=== PATIENT | female | born 1945 | race Caucasian/White ===

== ENCOUNTER 2018-11-08 21:46 | Inpatient (IN) | payer OTHER ==
[~2018-11-08] VITALS: Ht 157.5 cm; Wt 59.6 kg
[~2018-11-08 21:46] MED LIST: CETIRIZINE HCL5 MG PO; GLIPIZIDE METFORMIN PO; OMEPRAZOLE40 MG PO; PROAIR HFA INH8.5 GM INH; SYMBICORT 16010.2 GM INH; [UNRECOGNIZED DRUG - OTHER]
--- OUTSIDE RECORDS SUMMARY | 2018-11-08 21:48 | XMS REPORT ---
Author Author [facility] Address Unknown Phone Unavailable Care Team Providers Care Application Integration Architect Name Role Phone Valeria MEEKS Unavailable Unavailable Problems This patient has no known problems. Allergies, Adverse Reactions, Alerts This patient has no known allergies or adverse reactions. Medications This patient has no known medications. Results Test Description Test Time Test Comments Text Results Atomic Results Result Comments CHEST SINGLE (PORTABLE) [place] [id number] Patient Name: SADIA MELVIN MR #: [id number] : 1945 Age/Sex: 71/F Req #: [id number] Adm Physician: Ordered by: MARLENE MEEKS MD Report #: [id number] Location: ER Room/Bed: Procedure: [id number] DX/CHEST SINGLE (PORTABLE) Exam Date: 01/22/17 Exam Time: 1555 REPORT STATUS: Signed Portable chest x-ray INDICATION: COPD COMPARISON: Chest x- ray 10/01/2015 FINDINGS: Frontal view of the chest obtained at 1547 hours. The cardiac silhouette is normal. The pulmonary vascular markings are normal. The lungs demonstrate diffuse hyperinflation. No mass or infiltrate. The costophrenic angles are sharp. There is no pneumothorax. The osseous structures are stable with degenerative changes of the spine. IMPRESSION: Stable pulmonary hyperinflation. No acute cardiopulmonary process. Signed by: Dr. Devang Rojas MD on 01/22/2017 4:10 PM Dictated By: DEVANG ROJAS MD 161 Transcribed By: ROSALIND on 01/22/171609 COPY TO: MARLENE MEEKS MD
[2018-11-08] MEDS ORDERED: SODIUM CHLORIDE 0.9% 1000ML 1,000 ML IV ONE (22:15)
[2018-11-08] MEDS ORDERED: MECLIZINE HCL 12.5 MG TAB PO ONE (22:15)
--- NOTE | 2018-11-08 22:28 | Diagnostic Imaging Report ---
Examination: Single AP view of the chest. COMPARISON: None. INDICATION: Vomiting DISCUSSION: Lines/tubes: None. Lungs: The lungs are well inflated and clear. No pneumonia or pulmonary edema. Pleura: No pleural effusion or pneumothorax. Heart and mediastinum: The heart and the mediastinum are unremarkable. Bones and soft tissues: No acute bony abnormalities. IMPRESSION: 1. No acute cardiopulmonary abnormalities. Signed by: Dr. Oliver Sanchez M.D. on 11/08/2018 10:24 PM
[2018-11-08 22:36] LABS: BASOPHILS % 0.4 % (0.0-1.0); EOSINOPHILS % 0.1 % (0.0-6.0); HEMATOCRIT 42.1 % (34.2-44.1); HEMOGLOBIN 14.5 g/dL (12.0-16.0); LYMPHOCYTES # (AUTO) 1.3 (1.0-3.2); LYMPHOCYTES % 18.3 % (18.0-39.1); MEAN CORPUSCULAR HGB CONC 34.4 g/dL (31-35); MEAN CORPUSCULAR VOLUME 92.9 fL (81-99); MONOCYTES # (AUTO) 0.4 (0.2-0.8); MONOCYTES % 5.2 % (4.4-11.3); NEUTROPHILS # (AUTO) 5.4 (2.1-6.9); NEUTROPHILS % 75.4 % (38.7-80.0); PLATELET COUNT 243 x10e3/uL (140-360); RED BLOOD COUNT 4.53 x10e6/uL (3.6-5.1); RED CELL DISTRIBUTION WIDTH 13.5 % (11.7-14.4)
[2018-11-08 22:45] LABS: INR 0.82; PARTIAL THROMBOPLASTIN TIME 25.3 seconds (23.8-35.5); PROTHROMBIN TIME 11.8 seconds (11.9-14.5)
[2018-11-08 22:55] LABS: ALANINE AMINOTRANSFERASE 18 IU/L (0-55); ALBUMIN 4.4 g/dL (3.5-5.0); ALBUMIN/GLOBULIN RATIO 1.5 (0.8-2.0); ALKALINE PHOSPHATASE 67 IU/L (40-150); AMYLASE 61 U/L (25-125); ANION GAP 18.9 mmol/L (8-16); BLOOD UREA NITROGEN 11 mg/dL (7-26); BUN/CREATININE RATIO 13 (6-25); CALCIUM 10.1 mg/dL (8.4-10.2); CARBON DIOXIDE 25 mmol/L (22-29); CHLORIDE 100 mmol/L (98-107); CREATINE KINASE 145 IU/L (29-168); CREATININE, SERUM 0.86 mg/dL (0.57-1.11); EST GLOMERULAR FILTRATION RATE > 60 ML/MIN (60-); GLUCOSE 241 mg/dL (74-118); LIPASE 17 U/L (8-78); POTASSIUM 3.9 mmol/L (3.5-5.1); SODIUM 140 mmol/L (136-145)
[2018-11-08] MEDS ORDERED: SODIUM CHLORIDE 0.9% 50ML 50 ML ONE (23:26)
[2018-11-08] MEDS ORDERED: IOPAMIDOL 370 MG/ML 200 ML INFUS..BTL INJ ONE (23:27)
[2018-11-08] MEDS ORDERED: ONDANSETRON HCL INJ 2MG/ML 2ML 2 MG/ML VIAL IV STA (23:51)
[2018-11-09] VITALS (7 sets, daily range): BP systolic 119–153; BP diastolic 56–69
--- NOTE | 2018-11-09 00:14 | Diagnostic Imaging Report ---
EXAMINATION: CT of the abdomen and pelvis with contrast. TECHNIQUE: Helical CT images of the abdomen and pelvis were performed from the lung bases to the lesser trochanters after the intravenous administration of 100 cc of Isovue 300 and the oral administration of none. Coronal and sagittal reformatted images were obtained.Dose modulation, iterative reconstruction, and/or weight based adjustment of the mA/kV was utilized to reduce the radiation dose to as low as reasonably achievable. COMPARISON: None. CLINICAL HISTORY:Abdominal pain DISCUSSION: ABDOMEN/PELVIS: LOWER THORAX:Unremarkable. HEPATOBILIARY: No focal hepatic lesions. No intra-or extrahepatic biliary ductal dilation. The gallbladder is normal. SPLEEN: No splenomegaly. PANCREAS: No focal masses or ductal dilatation. ADRENALS: No adrenal nodules. KIDNEYS/URETERS: No hydronephrosis, stones, or solid mass lesions. PELVIC ORGANS/BLADDER: The bladder is normal. PERITONEUM/RETROPERITONEUM: No free air or fluid. LYMPH NODES: No intra-abdominal, retroperitoneal, pelvic or inguinal lymphadenopathy. VESSELS: Vascular calcifications. GI TRACT: No obstruction. Diverticulosis without inflammatory change. BONES AND SOFT TISSUE: No bony destructive lesions. Multilevel lumbar spondylosis. IMPRESSION: No acute CT finding. Diverticulosis without inflammatory change. Signed by: Dr. Oliver Sanchez M.D. on 11/09/2018 12:11 AM
[2018-11-09 00:29] LABS: BILIRUBIN,URINE NEGATIVE (NEGATIVE); CLARITY,URINE CLEAR (CLEAR); COLOR,URINE YELLOW (YELLOW); KETONES,URINE NEGATIVE (NEGATIVE); LEUKOCYTE ESTERASE ,URINE NEGATIVE (NEGATIVE); NITRITE,URINE NEGATIVE (NEGATIVE); PROTEIN,URINE DIPSTICK NEGATIVE (NEGATIVE); URINE UROBILINOGEN 0.2 mg/dL (0.2 - 1)
[2018-11-09 00:44] LABS: BACTERIA,URINE FEW /HPF; EPITHELIAL CELLS,URINE RARE /LPF; MUCUS,URINE FEW (RARE); RBC,URINE 0-5 /HPF (0-5); WBC,URINE (MAN) 0-5 /HPF (0-5)
[2018-11-09] MEDS ORDERED: SODIUM CHLORIDE 0.9% 1000ML 1,000 ML IV SCH (00:48)
[2018-11-09] MEDS ORDERED: ONDANSETRON HCL INJ 2MG/ML 2ML 2 MG/ML VIAL IV PRN (01:00)
[2018-11-09] MEDS ORDERED: DEXTROSE 50% SYRINGE 50 ML IV PRN (01:00)
[2018-11-09] MEDS ORDERED: GLIPIZIDE-METF1 EAC1 PO (01:51)
[2018-11-09] MEDS ORDERED: VERAPAMIL ER120 M1 PO (01:51)
--- NOTE | 2018-11-09 02:23 | NUR ---
received patient aaox4 from er. patient nausea and vomited about 100ml of green emesis, linen and gown change due to stress incontinence. tele #[id number] NSR. bed locked and in lowest position, call light within easy reach. bed alarm activated.
[2018-11-09] MEDS ORDERED: MECLIZINE HCL 12.5 MG TAB PO ONE (06:00)
[2018-11-09] MEDS: MECLIZINE HCL 12.5 MG TAB PO SCH ×3 (06:03→17:19)
--- NOTE | 2018-11-09 07:00 | NUR ---
PT RESTING IN BED AA0X3. PT IS IN NO S.S OF DISTRESS AT THIS TIME IV FLUIDS TO THE RIGHT AC 20 WITH NS AT 100 CC/HR. SITE IS CLEAN AND DRY LEFT FA 20 SL PATENT AND DRY WILL CONTINUE TO MONITOR PT CLOSELY, SIDE RAILSX2, BED WHEELS LOCKED, CALL LIGHT IS WITHIN EASY REACH, INSTRUCTED TO CALL FOR ASSISTANCE IF NEEDED
[2018-11-09] MEDS: PANTOPRAZOLE 40 MG 10ML VIAL IV SCH (08:35)
[2018-11-09] MEDS: VERAPAMIL HCL 120 MG TABSR PO SCH (08:36)
[2018-11-09] MEDS: INSULIN REGULAR, HUMAN 100 UNIT/1 ML 3ML VIAL SQ SCH ×4 (08:36→21:18)
[2018-11-09] MEDS ORDERED: ALBUTEROL/IPRATROPIUM 3 ML NEB NEB PRN (09:00)
[2018-11-09] MEDS ORDERED: CHLORDIAZEPOXIDE HCL 10 MG CAP PO PRN (09:00)
[2018-11-09] MEDS: OLMESARTAN 20 MG TAB PO SCH (09:00)
[2018-11-09] MEDS: FOLIC ACID 1 MG TAB PO SCH (09:54)
[2018-11-09] MEDS: THIAMINE HCL 100 MG TAB PO SCH (09:54)
[2018-11-09] MEDS ORDERED: OLMESARTAN 20 MG TAB PO ONE (10:00)
[2018-11-09] MEDS: CETIRIZINE HCL 5 MG PO SCH (11:00)
[2018-11-09] MEDS: METOCLOPRAMIDE HCL 10 MG TAB PO SCH ×3 (11:39→21:16)
--- NOTE | 2018-11-09 11:48 | History and Physical ---
The patient placed on observation. PRIMARY CARE PHYSICIAN: Sanjiv. CHIEF COMPLAINT: Headache, nausea, and abdominal pain. HISTORY OF PRESENT ILLNESS: The patient is a 72-year-old female. 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 The patient came to the emergency room, where her blood pressure was significantly elevated. The patient's vital sign was 162/99. The patient was having headache. No vomiting, but some nausea. The patient is a smoker. She is also an everyday drinker. She denied of any chest pain. No abdominal distention and no vision changes. The patient is otherwise stable. PAST MEDICAL HISTORY: Diabetes type 2, COPD, reflux, dyslipidemia, and hypertension. PAST SURGICAL HISTORY: and oral surgery. SOCIAL HISTORY: The patient is an everyday smoker, pack a day for many years. She is an everyday drinker, but after work, before she goes to bed. ALLERGIES: CODEINE. HOME MEDICATIONS: She is on albuterol, Symbicort, Zyrtec, glipizide, metformin, omeprazole, verapamil, and Tresiba. PHYSICAL EXAMINATION: VITAL SIGNS: Temperature is 97, blood pressure 153/67, pulse rate is 93, respirations 20. GENERAL: The patient is not in acute distress. HEENT: Normocephalic, atraumatic. Pupils are reactive. Anicteric. NECK: Supple grossly. PULMONARY: Diminished breath sounds without any wheezing or rales. CARDIOVASCULAR: S1, S2. Regular rate and rhythm. ABDOMEN: Soft, nondistention. EXTREMITIES: No cyanosis or edema. NEUROLOGIC: No gross focal deficit. Moving all extremities. LABORATORY DATA: CT of abdomen and pelvis show no acute findings. Diverticulosis without diverticulitis. WBC is 7.1, hemoglobin is 14.5, hematocrit 42, platelet is 243. Sodium is 140, potassium is 3.9, chloride is 100, bicarb 25, BUN is 11, creatinine is 0.8, glucose 241. Cardiac enzymes are negative x2 sets. Urinalysis, 2+ glucose. Coagulation was normal. Chest x-ray, no acute cardiopulmonary abnormality. IMPRESSION: 1. Hypertensive urgency, maybe contributing to the patient's dizziness and nausea and vomiting, but improving. She is still having some vague headaches. Blood pressure remained slightly elevated. The patient is placed on observation for now. 2. Multiple chronic baseline problems. PLAN: Obtain carotid Doppler and echocardiogram. Dr. Caleb Barr to read. Resume home medications except for metformin. Insulin sliding scale coverage. Symptomatic treatment for headaches. Control blood pressure. MD SOCORRO Dc/MODL /[id number]
[2018-11-09] MEDS: ALBUTEROL/IPRATROPIUM 3 ML NEB NEB SCH ×2 (13:20→20:40)
[2018-11-09] MEDS: BUDESONIDE/FORMOTEROL 160/4.5MCG INHALER INH SCH (19:00)
--- NOTE | 2018-11-09 19:04 | NUR ---
RECEIVED PATIENT AAOX3, RESTING IN BED. NO DISTRESS OBSERVED. NO NEEDS VOICED AT THIS TIME. BED LOCKED AND IN LOWEST POSITION, CALL LIGHT WITHIN EASY REACH.
[2018-11-09 23:03] LABS: CREATINE KINASE 186 IU/L (29-168)
[2018-11-10] VITALS (8 sets, daily range): BP systolic 121–144; BP diastolic 58–71
[2018-11-10] MEDS: MECLIZINE HCL 12.5 MG TAB PO SCH ×6 (00:37→23:59)
[2018-11-10] MEDS: ALBUTEROL/IPRATROPIUM 3 ML NEB NEB SCH ×4 (01:00→19:40)
[2018-11-10 05:48] LABS: BASOPHILS % 0.6 % (0.0-1.0); EOSINOPHILS # (AUTO) 0.1 (0.0-0.4); EOSINOPHILS % 1.8 % (0.0-6.0); HEMATOCRIT 39.3 % (34.2-44.1); LYMPHOCYTES # (AUTO) 2.7 (1.0-3.2); LYMPHOCYTES % 39.5 % (18.0-39.1); MEAN CORPUSCULAR HEMOGLOBIN 32.1 pg (28-32); MEAN CORPUSCULAR HGB CONC 33.1 g/dL (31-35); MONOCYTES # (AUTO) 0.5 (0.2-0.8); MONOCYTES % 7.9 % (4.4-11.3); NEUTROPHILS # (AUTO) 3.4 (2.1-6.9); NEUTROPHILS % 49.9 % (38.7-80.0); PLATELET COUNT 208 x10e3/uL (140-360); RED BLOOD COUNT 4.05 x10e6/uL (3.6-5.1); RED CELL DISTRIBUTION WIDTH 13.7 % (11.7-14.4)
[2018-11-10 05:58] LABS: ALANINE AMINOTRANSFERASE 15 IU/L (0-55); ALBUMIN 3.4 g/dL (3.5-5.0); ALBUMIN/GLOBULIN RATIO 1.5 (0.8-2.0); ALKALINE PHOSPHATASE 54 IU/L (40-150); ANION GAP 12.3 mmol/L (8-16); BLOOD UREA NITROGEN 9 mg/dL (7-26); BUN/CREATININE RATIO 12 (6-25); CALCIUM 9.3 mg/dL (8.4-10.2); CARBON DIOXIDE 25 mmol/L (22-29); CHLORIDE 108 mmol/L (98-107); CREATININE, SERUM 0.75 mg/dL (0.57-1.11); EST GLOMERULAR FILTRATION RATE > 60 ML/MIN (60-); GLUCOSE 138 mg/dL (74-118); POTASSIUM 3.3 mmol/L (3.5-5.1); SODIUM 142 mmol/L (136-145)
--- NOTE | 2018-11-10 07:15 | NUR ---
Rcvd patient in report this am. Patient is asleep in bed at this time. No s/s of distress noted
[2018-11-10] MEDS: INSULIN REGULAR, HUMAN 100 UNIT/1 ML 3ML VIAL SQ SCH ×4 (07:30→21:42)
[2018-11-10] MEDS: BUDESONIDE/FORMOTEROL 160/4.5MCG INHALER INH SCH ×2 (07:35→19:38)
[2018-11-10] MEDS: METOCLOPRAMIDE HCL 10 MG TAB PO SCH ×4 (08:14→21:25)
[2018-11-10] MEDS: THIAMINE HCL 100 MG TAB PO SCH (08:14)
[2018-11-10] MEDS: VERAPAMIL HCL 120 MG TABSR PO SCH (08:14)
[2018-11-10] MEDS: FOLIC ACID 1 MG TAB PO SCH (08:14)
[2018-11-10] MEDS: OLMESARTAN 20 MG TAB PO SCH (08:14)
[2018-11-10] MEDS: CETIRIZINE HCL 5 MG PO SCH (08:14)
[2018-11-10] MEDS: PANTOPRAZOLE 40 MG 10ML VIAL IV SCH (08:14)
--- NOTE | 2018-11-10 12:31 | NUR ---
Patient is AAOx3. Patient lung faustin clear to auscultation. Bowel sounds present x4. NO edema noted. Patient noted to be c/o dizziness and having an unsteady gait. Walker at bedside for unsteady gait. Right AC IV in place. No c/o pain
[2018-11-10] MEDS ORDERED: POTASSIUM CHLORIDE 10MEQ EA PO NR (12:45)
--- NOTE | 2018-11-10 14:00 | NUR ---
Patient went to MRI at this time.
[2018-11-10] MEDS: CYANOCOBALAMIN INJ 1,000 MCG/ML VIAL IM SCH (14:45)
[2018-11-10] MEDS: THIAMINE HCL INJ 100 MG/ML 2ML VIAL IV SCH (15:30)
--- NOTE | 2018-11-10 15:51 | Diagnostic Imaging Report ---
History: Unsteady gait Comparison studies: None Technique: Sagittal T2; axial DWI, FLAIR, MPGR, T1, Coronal FLAIR. Intravenous contrast: None Findings: Scalp: Normal in signal . No masses . Bone marrow: Normal in signal intensity. Extra-axial: No masses or fluid collections. Brain sulci: Appropriate for age. Ventricles: Normal in size . No hydrocephalus . Parenchyma: A punctate focus of increased T2 and T2 FLAIR signal, associated with restricted diffusion along the margin of the fourth ventricle to the left of midline (and lateral to the left facial colliculus) felt to be a focal acute acute lacunar vascular insult. It is, however, not clear how it relates to patient's history. (Series 2 image 10, series 3, image 10, series 5 image 7 and series 7, image 11). Multiple scattered T2 FLAIR hyperintense foci in the supratentorial white matter are nonspecific small vessel ischemic changes. Old punctate lacunar insults are centered in the putamina, subinsular region, left parietal and right orbitofrontal white matter right superior and left paramedian emily. No masses, hemorrhage, acute or chronic cortical ischemic insults. Suprasellar region: No abnormalities. Craniocervical junction: No abnormalities. Patent foramen magnum. No Chiari one malformation. Vessels: Normal flow-voids in the arteries and sinuses. IMPRESSION: 1. Punctate acute nonhemorrhagic lacunar insult along the margin of the fourth ventricle (lateral to the left facial colliculus). Not clear whether it relates to patient's symptoms. 2. Otherwise, no acute abnormalities. Chronic findings: 1. Mild generalized volume loss. 2. Moderate supratentorial white matter small vessel ischemic changes. 3. Multiple focal lacunar insult. Signed by: Dr. Bentley Carrasco M.D. on 11/10/2018 3:48 PM
[2018-11-11] VITALS (8 sets, daily range): BP systolic 120–163; BP diastolic 59–74
[2018-11-11] MEDS: ALBUTEROL/IPRATROPIUM 3 ML NEB NEB SCH ×4 (00:15→18:35)
[2018-11-11] MEDS: MECLIZINE HCL 12.5 MG TAB PO SCH ×4 (06:42→23:51)
--- NOTE | 2018-11-11 07:00 | NUR ---
PT RESTING IN BED AA0X3. PT IS IN NO S.S OF DISTRESS AT THIS TIME IV SITES TO THE RIGHT AC 20 AND LEFT FA 20 SL PATENT AND DRY PT IS ON RA WILL CONTINUE TO MONITOR PT CLOSELY, SIDE RAILSX2, BED WHEELS LOCKED, CALL LIGHT IS WITHIN EASY REACH, INSTRUCTED TO CALL FOR ASSISTANCE IF NEEDED
[2018-11-11] MEDS: BUDESONIDE/FORMOTEROL 160/4.5MCG INHALER INH SCH ×2 (07:25→18:35)
[2018-11-11] MEDS: INSULIN REGULAR, HUMAN 100 UNIT/1 ML 3ML VIAL SQ SCH ×4 (07:30→20:33)
[2018-11-11] MEDS: THIAMINE HCL INJ 100 MG/ML 2ML VIAL IV SCH (08:54)
[2018-11-11] MEDS: PANTOPRAZOLE 40 MG 10ML VIAL IV SCH (08:54)
[2018-11-11] MEDS: OLMESARTAN 20 MG TAB PO SCH (08:54)
[2018-11-11] MEDS: METOCLOPRAMIDE HCL 10 MG TAB PO SCH ×4 (08:54→20:27)
[2018-11-11] MEDS: FOLIC ACID 1 MG TAB PO SCH (08:54)
[2018-11-11] MEDS: CETIRIZINE HCL 5 MG PO SCH (08:54)
[2018-11-11] MEDS: VERAPAMIL HCL 120 MG TABSR PO SCH (08:54)
[2018-11-11] MEDS: CYANOCOBALAMIN INJ 1,000 MCG/ML VIAL IM SCH (08:54)
--- NOTE | 2018-11-11 21:55 | NUR ---
Assessment done.no resp.distress.no pain voiced.getting neb.treatment.voided.bed locked and in lowest position.phone and call light within reach.instructed to call for assistance as needed.
[2018-11-12] VITALS (8 sets, daily range): BP systolic 101–137; BP diastolic 56–66
[2018-11-12] MEDS: ALBUTEROL/IPRATROPIUM 3 ML NEB NEB SCH ×4 (01:00→19:50)
[2018-11-12] MEDS: MECLIZINE HCL 12.5 MG TAB PO SCH ×4 (05:19→23:45)
[2018-11-12 06:07] LABS: ANION GAP 14.8 mmol/L (8-16); BLOOD UREA NITROGEN 10 mg/dL (7-26); BUN/CREATININE RATIO 13 (6-25); CALCIUM 9.4 mg/dL (8.4-10.2); CARBON DIOXIDE 24 mmol/L (22-29); CHLORIDE 107 mmol/L (98-107); CREATININE, SERUM 0.75 mg/dL (0.57-1.11); EST GLOMERULAR FILTRATION RATE > 60 ML/MIN (60-); GLUCOSE 149 mg/dL (74-118); POTASSIUM 3.8 mmol/L (3.5-5.1); SODIUM 142 mmol/L (136-145)
--- NOTE | 2018-11-12 06:50 | NUR ---
Bedside shift report given to the oncoming rn.walking rounds done.stable condition.
[2018-11-12] MEDS: BUDESONIDE/FORMOTEROL 160/4.5MCG INHALER INH SCH ×2 (07:00→19:50)
--- NOTE | 2018-11-12 07:00 | NUR ---
BEDSIDE SHIFT REPORT RECEIVED BY NIGHT RN, PT IN STABLE CONDITION, CO PAIN 4/10 TO BACK/ABDOMEN R AC 20G SL AND L FA 20G SL NO SS OF INFILTRATION NOTED, NO OTHER CO VOICED CALL LIGHT IN REACH WILL CONTINUE TO MONITOR
[2018-11-12] MEDS: INSULIN REGULAR, HUMAN 100 UNIT/1 ML 3ML VIAL SQ SCH ×4 (07:30→22:02)
[2018-11-12] MEDS: METOCLOPRAMIDE HCL 10 MG TAB PO SCH ×4 (08:37→22:01)
[2018-11-12] MEDS: CYANOCOBALAMIN INJ 1,000 MCG/ML VIAL IM SCH (08:38)
[2018-11-12] MEDS: OLMESARTAN 20 MG TAB PO SCH (08:38)
[2018-11-12] MEDS: FOLIC ACID 1 MG TAB PO SCH (08:38)
[2018-11-12] MEDS: THIAMINE HCL INJ 100 MG/ML 2ML VIAL IV SCH (08:38)
[2018-11-12] MEDS: VERAPAMIL HCL 120 MG TABSR PO SCH (08:38)
[2018-11-12] MEDS: PANTOPRAZOLE 40 MG 10ML VIAL IV SCH (08:39)
[2018-11-12] MEDS: CETIRIZINE HCL 5 MG PO SCH (09:00)
--- NOTE | 2018-11-12 11:10 | NUR ---
EDUCATED ABOUT IMM, SIGNED, FILED IN CHART, WITH COPY LEFT WITH FAMILY AT BEDSIDE.
--- NOTE | 2018-11-12 11:28 | NUR ---
WALKER PROVIDED TO PATIENT GREEN SHEET FILED IN PACU
--- NOTE | 2018-11-12 14:49 | NUR ---
CM SPOKE TO PATIENT AT BEDSIDE REGARDING DISCHARGE PLAN AND ORDERS FOR HOME HEALTH SERVICES. PATIENT AWARE OF HOME HEALTH ORDERS AND GIVEN CHOICES OF HOME HEALTH COMPANIES. PATIENT CHOSE [facility] THROUGH HER INSURANCE. CHOICE LETTER SIGNED AND PLACED IN CHART. CLINICAL FAXED TO [facility]. PATIENT ACCEPTED [facility] PHONE: [phone] FAX: [phone] LIAISON: NAE LORENZO
--- NOTE | 2018-11-12 14:51 | NUR ---
DISCHARGE DISPOSITION: PATIENT DISCHARGING WITH HOME WITH HOME HEALTH SERVICES FROM THE FOLLOWING: [facility] PHONE: [phone] FAX: [phone] LIAISON: NAE LORENZO Addendum: 11/12/18 at 1452 by Nae Mcdonald CM PATIENT RECEIVED WALKER AT BEDSIDE TO TAKE HOME.
--- NOTE | 2018-11-12 15:32 | NUR ---
PRINCESS LM WITH DR. COBOS REGARDING DISCHARGE. PATIENT WITH HOME HEALTH SET UP AND ROLLING WALKER AT BEDSIDE. PATIENT REQUESTING TO RETURN HOME. PENDING RETURN CALL FROM MD FOR ORDERS.
--- NOTE | 2018-11-12 19:00 | NUR ---
Received bedside report from day shift RN. The patient is laying on the bed, not in distress, call light within reach, bed height low, side rails up x2 and wheels lock.
[2018-11-13] VITALS: BP 133/62
[2018-11-13] MEDS: ALBUTEROL/IPRATROPIUM 3 ML NEB NEB SCH ×2 (01:05→06:45)
[2018-11-13 04:00] VITALS: BP 134/63
[2018-11-13] MEDS: MECLIZINE HCL 12.5 MG TAB PO SCH (05:46)
[2018-11-13] MEDS: BUDESONIDE/FORMOTEROL 160/4.5MCG INHALER INH SCH (06:58)
--- NOTE | 2018-11-13 07:00 | NUR ---
received am report from rn. pt is asleep in bed, no s/s of distress. call light within reach, bed in lowest position, side rails up
[2018-11-13] MEDS: INSULIN REGULAR, HUMAN 100 UNIT/1 ML 3ML VIAL SQ SCH (08:32)
[2018-11-13] MEDS: METOCLOPRAMIDE HCL 10 MG TAB PO SCH (08:32)
[2018-11-13] MEDS: PANTOPRAZOLE 40 MG 10ML VIAL IV SCH (08:33)
[2018-11-13] MEDS: THIAMINE HCL INJ 100 MG/ML 2ML VIAL IV SCH (08:33)
[2018-11-13] MEDS: FOLIC ACID 1 MG TAB PO SCH (08:34)
[2018-11-13] MEDS: OLMESARTAN 20 MG TAB PO SCH (08:34)
[2018-11-13] MEDS: VERAPAMIL HCL 120 MG TABSR PO SCH (08:34)
[2018-11-13] MEDS: CETIRIZINE HCL 5 MG PO SCH (08:35)
[2018-11-13 09:03] VITALS: BP 134/65
--- NOTE | 2018-11-13 09:22 | Discharge Summary ---
FINAL DIAGNOSES: 1. Acute nonhemorrhagic lacunar insult along the margin of fourth ventricle lateral to the left basal colliculus. 2. Mild generalized brain volume loss. 3. Moderate supratentorial white matter small vessel ischemic changes with multiple focal lacunar insult. 4. Ambulatory dysfunction secondary to multifactorial most likely secondary to alcoholic induced. 5. Alcoholism. 6. Electrolyte disorder, corrected. 7. Diabetes with diabetic neuropathy, most likely worsening with alcohol consumption, also with chronic nausea and vomiting. SUMMARY: A 72-year-old female, who is a transportation maintenance supervisor, drinking everyday seven days per week, significant drinking. The patient came in to the hospital because she was having some nausea, vomiting, dizziness, and have difficulty with walking. Workup has shown that the patient has multiple lacunar infarcts, but may have now contributed to the patient's symptoms. The patient was worked up. She did receive B12, thiamine, folic acid, and Librium. She did receive physical therapy. Arrangement for the patient to have a walker, which she is using now. She also will get home health as well. The patient is stable, discharged home, resume home medication. She will take Librium 10 mg q.6 h. p.r.n. for alcohol withdrawal symptoms or craving. Folic acid 1 mg daily, thiamine 100 mg daily, meclizine 12.5 q.6 h. p.r.n. for dizziness, Reglan 5 mg q.a.c. p.r.n. for nausea and vomiting, Benicar 20 mg daily, omeprazole 40 mg daily, Ecotrin 81 mg daily and Lipitor 10 mg at bedtime. The patient is stable. I have advised the patient to follow up with her family doctors. She will need to call her insurance coverage to physician. The patient is otherwise stable, discharged home today, follow up as an outpatient. MD SOCORRO Dc/STEVE /[id number]
[2018-11-14 14:49] LABS: CREATINE KINASE 202 IU/L (29-168)
[2018-11-14 16:38] LABS: FOLATE > 20.0 ng/mL (7.0-15.4)
== END 2018-11-13 10:30 | disposition home health service (06) | DRG 66 ==
LOC: ER 21:46 → ERHOLD 11-09 00:52 → MED/SURG 11-09 02:25 → OBSVTOIN 11-09 12:46
PROVIDERS: ADMIT Internal Medicine; ATTEND Internal Medicine
DX: I63.81 Other cerebral infarction due to occlusion or stenosis of small artery (principal); I16.0 Hypertensive urgency; J44.9 Chronic obstructive pulmonary disease, unspecified; F10.20 Alcohol dependence, uncomplicated; K21.9 Gastro-esophageal reflux disease without esophagitis; E78.5 Hyperlipidemia, unspecified; I10 Essential (primary) hypertension; E11.42 Type 2 diabetes mellitus with diabetic polyneuropathy; G62.1 Alcoholic polyneuropathy; F17.200 Nicotine dependence, unspecified, uncomplicated; R26.89 Other abnormalities of gait and mobility; R11.2 Nausea with vomiting, unspecified; G31.9 Degenerative disease of nervous system, unspecified; E87.8 Other disorders of electrolyte and fluid balance, not elsewhere classified; Z79.84 Long term (current) use of oral hypoglycemic drugs
CPT/HCPCS: 36415; 70551; 71045; 74177; 80048; 80053; 81001; 82150; 82550; 82553; 82607; 82746; 82948; 83036; 83690; 84443; 84484; 85025; 85610; 85730; 93005; 93306; 93880; 94640; 94664; 99284; G0378; J1817; J2405; J3411; J3420; J7030; Q9967